=== PATIENT | male | born 1945 | race Caucasian/White ===

== ENCOUNTER 2019-02-18 08:30 | Day surgery (SDC) | payer OTHER, MEDICARE ==
[2019-02-18] MEDS ORDERED: NA CHLORIDE 0.9% 1,000 ML ONE (08:52)
[2019-02-18] MEDS ORDERED: FENTANYL CITR 100 MCG/2 ML ONE (09:43)
[2019-02-18] MEDS ORDERED: MIDAZOLAM HCL 2 MG/2 ML INJ ONE (09:43)
[2019-02-18] MEDS ORDERED: DIPHENHYDRAMINE 50 MG/ML VIAL ONE (09:44)
[2019-02-18] MEDS ORDERED: NALOXONE 0.4 MG/ML VIAL ONE (09:44)
[2019-02-18] MEDS ORDERED: FLUMAZENIL 0.1 MG/ML (5 mL VIAL) IV ONE (09:44)
--- NOTE | 2019-02-18 11:53 | RAD REPORT ---
EXAM DESCRIPTION: US - Liver Biopsy Procedure - 02/18/2019 10:37 am CLINICAL HISTORY: Large liver mass, no known primary malignancy, abnormal CT study, prior colonoscop y demonstrating small pre cancerous polyps. COMPARISON: Patient's outside CT study from [facility] dated January 08, 2019 reviewed. TECHNIQUE: The patient presents for image guided biopsy of a large liver mass detailed on outside CT study. Outside CT study showed large mass lesion occupying much of the right lobe liver volume. The patient has no known primary malignancy. The procedure, risks and alternatives to the procedure were discussed with the patient in detail. Aft er answering all questions, both oral and written consent were obtained. A time-out procedure was per formed. The patient had no known drug allergies. PT/INR/platelet values are within normal limits. Preliminary sonographic evaluation showed hyperechoic lobulated mass filling much of the right lobe o f the liver. Access site was selected. IV access and physiologic monitors were in place prior to the procedure. The patient was pre-medicated with 100 micrograms fentanyl IV and 1.0 milligrams Versed IV . Right lateral access site was prepped and draped in the usual sterile fashion. Under direct sonogra phic visualization the skin and deeper tissues down to the liver capsule were anesthetized with 1% li docaine. Under direct sonographic visualization a 17 gauge introducer needle was advanced. Needle tip penetrated the liver capsule and was placed along the periphery of mass in the lower right lobe of t he liver. An 18 gauge needle was then advanced through the introducer needle. Under direct sonographi c visualization a 2 centimeter core biopsy was obtained of the lesion. A second 2 centimeter core bio psy was obtained using the same access site. Tissue at biopsy was quite fragmented and appeared necro tic. A third biopsy was obtained positioned closer to the margin of the mass. On visual inspection th is was a more defined or large tissue sample. No further biopsy cores were obtained. Introducer needle was withdrawn. Direct pressure was applied t o the puncture site. Post biopsy imaging showed no pericapsular or subcapsular bleeding. Hemostasis was obtained at the sk in puncture site. Sterile dressing was placed at the puncture site. The patient was placed in a right lateral decubitus position to apply pressure to the liver capsule access site. Vital signs were stable throughout the procedure. Patient tolerated the procedure without complicatio ns and complained of no pain at the conclusion of the procedure. The patient was transferred to the surgical area for post biopsy monitoring. Conscious sedation time was 30 minutes. IMPRESSION: 1. Ultrasound-guided biopsy of the right liver was performed as detailed. 2. There were three biopsy cores obtained. All tissue was given to pathology for histologic assessmen t.
== END 2019-02-18 14:00 | disposition home or self-care (01) ==
LOC: DS 08:30
PROVIDERS: ATTEND Internal Medicine Gastroenterology
DX: K74.60 Unspecified cirrhosis of liver (principal); C22.0 Liver cell carcinoma; K21.9 Gastro-esophageal reflux disease without esophagitis; K22.70 Barrett's esophagus without dysplasia; K31.811 Angiodysplasia of stomach and duodenum with bleeding; K29.50 Unspecified chronic gastritis without bleeding; I85.00 Esophageal varices without bleeding; Z79.899 Other long term (current) drug therapy; Z80.9 Family history of malignant neoplasm, unspecified; K44.9 Diaphragmatic hernia without obstruction or gangrene
CPT/HCPCS: 88307; 47000; J2250; J3010; J7030; 88313; J2310